=== PATIENT | male | born 1975 ===

== ENCOUNTER 2018-08-13 16:16 | Outpatient (CLI) | payer SELFPAY | END 2018-08-13 16:17 | disposition EMS.NT | LOC: EMS 16:16 | PROVIDERS: ATTEND Surgery | DX: R07.9 Chest pain, unspecified (principal); M54.2 Cervicalgia; V59.40XA Driver of pick-up truck or van injured in collision with unspecified motor vehicles in traffic accident, initial encounter; Y92.413 State road as the place of occurrence of the external cause ==